=== PATIENT | female | born 1955 | race Caucasian/White ===

== ENCOUNTER 2021-09-28 13:56 | Emergency (ER) | payer MEDICARE, SELFPAY ==
[2021-09-28 14:04] VITALS: BP 152/90; PULSE 95; RESP 16; TEMP 36.1; O2SAT 99
--- NOTE | 2021-09-28 14:06 | ED.URI ---
HPI - URI/Sore Throat General Stated Complaint: ears eyes and sore throat Time Seen by Provider: 09/28/21 14:06 Source: patient Mode of arrival: ambulatory Limitations: no limitations History of Present Illness HPI Narrative: Ms. Pompa is a 66-year-old female patient presenting to the clinic today with complaints of ear pain, throat irritation, and eye irritation/watery x3 to 4 days. She reports no known fever or chills. Has had nasal congestion and feels as though there is pressure behind her ears. No known exposure to anyone with Covid, influenza, or strep MD elicited complaint: sore throat and nasal congestion Related Data Allergies Allergy/AdvReac Type Severity Reaction Status Date / Time No Known Allergies Allergy Verified 09/28/21 14:17 Review of Systems Review of Systems: Pertinent positives per HPI. Patient denies any fever, chills, rash, headache, visual changes, dizziness, cough, shortness of breath, chest pain, palpitations, nausea, vomiting, diarrhea, constipation, abdominal pain, or any urinary issues. PMFSH Comments At the time of my signature, I reviewed and agree with the nursing past medical, surgical, social, and family history. There is no relevant family history pertinent to the patient complaint. Exam Narrative: General: Well-developed, well nourished, in no apparent distress Head: Normocephalic, atraumatic Eyes: Pupils equally round and reactive to light bilaterally, EOM intact, sclera and conjunctive clear, no discharge, lids normal Ears: Bilateral cerumen impaction, TMs intact, dull, mild bulging, ear canals clear after removal of cerumen, no drainage, grossly hearing normal. Nose: Nares patent, no discharge, no inflammation, no sinus tenderness. Mouth: Oral pharynx without lesions or masses, good dentition, MMM. Neck: Supple, trachea midline, no enlargement of anterior or posterior cervical nodes, no thyroid masses or goiter palpable. Cardio: Regular rate and rhythm, s1 and s2 normal, no murmur appreciated. Resp: Clear to auscultation bilaterally, no rhonchi, rales, wheezing or rubs Course Course Emergency Course: Portions of this record may have been created with voice recognition software. Level of Care: Express Care Visit Vital Signs Vital signs: Vital signs reviewed Procedures Ear Wax Removal Both Ears: Ear Wax Removal Date: 09/28/21 Results: Re-examined: cerumen removed completely TM Examination: TM(s) intact, normal appearance Ear Canal Exam: atraumatic Patient Tolerated Procedure: well Complications: no problems Technique: ear canal curetted Additional Comments: Lighted curette used to remove impacted cerumen from bilateral ear canals. Patient tolerated procedure well. TMs intact, dull, with mild bulging. MDM - URI/Sore Throat MDM Narrative Medical decision making narrative: At the time of assessment patient was resting comfortably on the exam table. Has runny nose, eye pressure/watery eyes, bilateral ear cerumen impaction. Ears disimpacted using a lighted curette successfully. TMs appear to be mildly bulging and dull. I suspect allergic rhinitis with eustachian tube dysfunction. supportive measures were discussed with patient and she voiced understanding Differential Diagnosis Differential diagnosis: Likely upper respiratory infection, otitis media, sinusitis, viral infection, influenza and pharyngitis Discharge Plan Discharge Clinical Impression: Acute dysfunction of both eustachian tubes, Bilateral impacted cerumen Allergic rhinitis Qualifiers: Allergic rhinitis trigger: unspecified Allergic rhinitis seasonality: unspecified Qualified Code(s): J30.9 - Allergic rhinitis, unspecified Patient Disposition: Home, Self-Care Condition: Stable Instructions: Antibiotic Form, Allergic Rhinitis (ED), Earache (ED) Additional Instructions: Cerumen impaction removal successful bilaterally Increase fluids and stay well h
== END 2021-09-28 14:30 | disposition home or self-care (01) ==
PROVIDERS: Emergency Provider Nurse Practitioner Family; PCP Family Medicine
DX: H69.93 Unspecified Eustachian tube disorder, bilateral (principal); H61.23 Impacted cerumen, bilateral; J30.9 Allergic rhinitis, unspecified; M19.90 Unspecified osteoarthritis, unspecified site; M79.7 Fibromyalgia; E11.9 Type 2 diabetes mellitus without complications; Z90.711 Acquired absence of uterus with remaining cervical stump
CPT/HCPCS: 69210; 99212; G0463